=== PATIENT | male | born 1965 | race Caucasian/White ===

== ENCOUNTER 2018-02-05 09:55 | Observation (INO) | payer SELFPAY ==
[2018-02-05] MEDS ORDERED: Acetaminophen 500 MG TAB ONE (10:39)
[2018-02-05] MEDS ORDERED: Metoclopramide HCl 10 MG/2 ML VIAL ONE (10:39)
[2018-02-05 10:43] LABS: Troponin I 0.012 ng/mL (< 0.028)
[2018-02-05] MEDS ORDERED: Loratadine 10 MG TAB PO PRN (13:14)
[2018-02-05] MEDS ORDERED: Nitroglycerin 0.4 MG TAB (25 Tab Bottle) PO PRN (13:14)
[2018-02-05] MEDS ORDERED: Bisacodyl 5 MG TAB PO PRN (13:14)
[2018-02-05] MEDS ORDERED: Calcium Carbonate 500 MG ChewTAB PO PRN (13:14)
[2018-02-05] MEDS ORDERED: Cepastat Lozenges 1 LOZ PO PRN (13:14)
[2018-02-05] MEDS ORDERED: Artificial Tears 18 DROP/0.9 ML EA EYE PRN (13:14)
[2018-02-05] MEDS ORDERED: Eucerin (Mineral Oil/Petrolatum,White) 30 gm Jar TOP PRN (13:14)
[2018-02-05] MEDS ORDERED: Acetaminophen 325 MG TAB PO PRN (13:14)
[2018-02-05] MEDS ORDERED: Loperamide HCl 2 MG CAP PO PRN (13:14)
[2018-02-05] MEDS ORDERED: Zolpidem Tartrate 5 MG TAB PO PRN (13:14)
[2018-02-05] MEDS ORDERED: Ondansetron ODT 4 MG TAB PO PRN (13:14)
[2018-02-05] MEDS ORDERED: Sodium Chloride 0.65% Nasal 44 ML BOT EA NARE PRN (13:14)
[2018-02-05] MEDS ORDERED: Ondansetron PF 4 MG/2 ML Vial IVP PRN (13:14)
[2018-02-05] MEDS ORDERED: hydrALAZINE 20 MG/ML VIAL SLOW IVP PRN (13:14)
[2018-02-05] MEDS ORDERED: Nitroglycerin 0.4 MG TAB (25 Tab Bottle) SL PRN (13:14)
[2018-02-05] MEDS ORDERED: Diabetic Tussin 200 MG/10 ML UDCUP PO PRN (13:14)
[2018-02-05] MEDS ORDERED: Bisacodyl 10 MG SUPP PR PRN (13:14)
[2018-02-05 13:17] VITALS: BMI 49.3
--- NOTE | 2018-02-05 13:39 | SS ---
PRIMARY CARE PHYSICIAN: Dr. Peterson REASON FOR ADMISSION: Transferred from [facility] for chest pain. HISTORY OF PRESENT ILLNESS COURSE: A 53-year-old male who has underlying history of hypertension, dyslipidemia, morbid obesity, who initially evaluated at [facility] for chest pain. He reports that he woke up with chest pain which was substernal in location, radiated to left side of arm, associated with nausea and mild shortness of breath. He did not have any associated palpitations, dizziness, or syncope. Initially his pain was a pressure-like sensation and subsequently it changed to stabbing in nature. Initially intensity of pain was about 8/10 and subsequently reduced 4/10 by itself. The patient was given Maalox 30 mL, nitroglycerin, nitropatch and he took aspirin and ibuprofen at home. All these medications reduced his pain from 8 to 4, but the patient believes that no medication helped significantly other than time reduced his pain. He never had this type of pain in the past. He never had any cardiac workup. He denies any radiation of pain in the back. He denies any associated vomiting. He denies any UTI symptoms. He denies any constipation, diarrhea, melena or hematochezia. Patient denies any smoking. He drinks alcohol only socially. He does have a family history of coronary artery disease. Initial evaluation at [facility] with a CBC, BMP, chest x-ray, and D-dimer came back negative. His cardiac enzymes are negative x2. BNP was also normal. His chest x-ray was also normal. The patient is being admitted to our hospital for rule out acute coronary syndrome. REVIEW OF SYSTEMS: The following complete review of systems was negative, unless otherwise mentioned in the HPI or below: Constitutional: Weight loss or gain, ability to conduct usual activities. Skin: Rash, itching. Eyes: Double vision, pain. ENT/Mouth: Nose bleeding, neck stiffness, pain, tenderness. Cardiovascular: Palpitations, dyspnea on exertion, orthopnea. Respiratory: Shortness of breath, wheezing, cough, hemoptysis, fever or night sweats. Gastrointestinal: Poor appetite, abdominal pain, heartburn, nausea, vomiting, constipation, or diarrhea. Genitourinary: Urgency, frequency, dysuria, nocturia. Musculoskeletal: Pain, swelling. Neurologic/Psychiatric: Anxiety, depression. Allergy/Immunologic: Skin rash, bleeding tendency. Please see my HPI for pertinent positive and negative. All other review of systems reviewed and negative except as mentioned in the history of present illness. . ALLERGIES: LATEX. No known drug allergy. CURRENT HOME MEDICATIONS: Lisinopril with hydrochlorothiazide 20/12.5 one tablet daily, Lipitor 20 mg daily, ibuprofen 600 mg daily, aspirin 81 mg daily, multivitamin 1 tablet p.o. daily. PAST MEDICAL HISTORY: Chronic low back pain, osteoarthritis, morbid obesity, hypertension, dyslipidemia, noncompliance with medication. PAST SURGICAL HISTORY: No surgical history. The patient denies any major surgery in his life. PAST PSYCHIATRIC HISTORY: Reviewed and negative. SOCIAL HISTORY: The patient is . His is present at bedside. He drinks alcohol socially once a month. He denies any smoking. He is an ex- smoker and he quit smoking in 2009. He denies any other illicit drug abuse. FAMILY HISTORY: Positive for hypertension, heart disease among several family members. Mother had congestive heart failure and heart disease. Father had his cancer and diabetes. EMERGENCY ROOM COURSE: At [facility], the patient was given Maalox and nitropatch was applied. In our emergency room, the patient is given aspirin 164 mg, Reglan 10 mg, and Tylenol 1 gram. PHYSICAL EXAMINATION: VITAL SIGNS: Currently, blood pressure 142/81, pulse 69, respiratory rate 18, temperature 98.4, saturation 96% on room air, weight 145.2 kilograms. GENERAL: The patient is currently alert, awake, no obvious acute distress. HEAD: Normocephalic, atraumatic. EYES: Pupils round, reactive to light. Extraocular muscle intact. ENT: Oropharynx within normal limits. Moist mucous membrane. No oral lesion, no pharyngeal erythema, no exudate. NECK: Supple, no JVD, no thyromegaly, no carotid bruit. No jugular venous distention. LUNGS: Clear to auscultation without any rhonchi or rales. CARDIAC: S1, S2 regular without any murmur, no gallop, no rub. ABDOMEN: Morbid obesity present. Bowel sounds present, nontender, nondistended. No organomegaly, no mass, no suprapubic tenderness. BACK: Unremarkable. No CVA tenderness. EXTREMITIES: Upper extremities; passive movement of all joints are normal. Lower extremities; trace edema noted, but no calf tenderness. Good distal pulsation. SKIN: No skin rash. HEMATOLOGIC: No lymphadenopathy. PSYCHIATRIC: Normal affect. NEUROLOGIC: Nonfocal examination. SIGNIFICANT LABORATORY DATA: EKG showing normal sinus rhythm within normal limits. Chest x-ray based on my review, no acute cardiopulmonary process. CBC: WBC 7.1, hemoglobin 13.3, platelet 255, D-dimer less than 0.27. BMP: Sodium 143, potassium 4.1, chloride 110, carbon dioxide 24, anion gap 13, BUN 20 , creatinine 0.88, glucose 103, calcium 9.1. LFTs: AST 18, ALT 32, alkaline phosphatase 53, albumin 4.1. Cardiac enzymes negative x2. BNP 14.3. ASSESSMENT AND PLAN: 1. Chest pain. The patient's chest pain description is atypical. He has substernal pain with nausea and some shortness of breath. His pain radiates to left side. He has NSAID use and I am suspecting gastroesophageal reflux related chest discomfort, but he also has several risk factors including hypertension, dyslipidemia, and family history and his age. Based on this his probability for coronary artery disease is mild to moderate. His D-dimer is negative and probability of thromboembolic disorder is extremely unlikely and that is why we have completely excluded that possibility. This patient has arthritis and chronic low back pain and that is why he cannot do treadmill exercise stress test and that is why we have to do pharmacological stress testing. I offered him to do pharmacological stress testing to rule out acute coronary syndrome and underlying ischemia, but this patient has important things to do at home and that is why he is not sure that he will stay here in the hospital longer. If he chooses to go home, then we will consider discharging him home once we have ruled out cardiac etiology, but in that case, the patient is instructed to get outpatient stress test. That is also a reasonable option given his low risk and negative cardiac enzymes as well as a negative D-dimer. The patient is instructed to take Pepcid or Prilosec or Nexium over the counter basis for his suspected gastroesophageal reflux disease related chest pain and we advised him to avoid NSAID as well as alcohol and healthy lifestyle measures discussed with the patient and weight loss education given. 2. Hypertension, currently well controlled. The patient will continue his antihypertensive medication with Prinzide 20/12.5 one tablet daily. 3. Dyslipidemia. Continue Lipitor 20 mg p.o. at bedtime. 4. Morbid obesity. Dietary education given, weight loss education given. 5. Osteoarthritis and chronic low back pain. The patient is advised to use Tylenol product other than NSAID. 6. Deep venous thrombosis prophylaxis not needed because we are expecting discharge soon. 7. GI prophylaxis, Pepcid 20 mg p.o. b.i.d. 8. CODE STATUS: The patient is FULL CODE. The patient's is surrogate decision maker. DISPOSITION PLAN: If the patient wanted to stay until tomorrow, then we will perform pharmacological stress test. If patient decides to leave then patient will be discharged home per his request. DATE OF ADMISSION: 02/05/2018 DATE OF DISCHARGE: DISCHARGE DISPOSITION: Home. PRIMARY DISCHARGE DIAGNOSES: Chest pain, ruled out acute coronary syndrome, suspecting gastroesophageal reflux disease. . SECONDARY DISCHARGE DIAGNOSES: Hypertension, dyslipidemia, morbid obesity, chronic low back pain, osteoarthritis. PRIMARY PROCEDURES/OPERATIONS: None. RADIOLOGICAL INVESTIGATION: Chest x-ray normal. SIGNIFICANT LABORATORY DATA: Please see above. DISCHARGE MEDICATIONS: The patient will continue his home medication including Prinzide 20/12.5 one tablet daily, Lipitor 20 mg p.o. daily, aspirin 81 mg p.o. daily. The patient is instructed to take Pepcid or Prilosec or Nexium over the counter daily. CONTRAINDICATIONS: None. CODE STATUS: FULL CODE. INPATIENT CONSULTANTS: None. ALLERGIES: No known drug allergy. DISCHARGE PLAN: Post hospital, the patient will be discharged home. HOSPITAL COURSE: Please see my HPI for further detail. This patient is transferred from [facility] for chest pain. We are keeping this patient as observation to rule out acute coronary syndrome. So far, EKG is normal. Cardiac enzymes negative. This patient does not have any typical anginal pain, suspecting from GERD. He does not want to stay in hospital because he has important things to do at home. If he changes his mind and stays overnight that is fine. Otherwise, we will consider discharging him home later on today. Plan of care discussed with the patient and in the emergency room and they agreed. LIZETTE
[2018-02-05] MEDS: Nitroglycerin 2% Ointment 1 INCH/1 GM Packet TOP SCH ×2 (13:41→21:04)
[2018-02-05] MEDS: HYDROcodone/Acetaminophen 5/325 mg Tablet PO PRN ×2 (13:41→19:45)
[2018-02-05 13:56] LABS: Troponin I 0.014 ng/mL (< 0.028)
[2018-02-05 18:38] LABS: Troponin I Less than 0.010 ng/mL (< 0.028)
[2018-02-05] MEDS ORDERED: Atorvastatin Calcium 20 MG TAB PO SCH (21:00)
[2018-02-05] MEDS: Famotidine 20 MG TAB PO SCH (21:01)
[2018-02-05] MEDS: Senokot S 8.6-50 MG TAB PO SCH (21:03)
[2018-02-06] MEDS: Nitroglycerin 2% Ointment 1 INCH/1 GM Packet TOP SCH (04:39)
[2018-02-06] MEDS: HYDROcodone/Acetaminophen 5/325 mg Tablet PO PRN (08:06)
--- NOTE | 2018-02-06 08:33 | PDOC.PN ---
- Subjective Encounter Start Date: 02/06/18 Encounter Start Time: 07:00 -: old records requested/rev Patient seen and examined. No new complaints. No overnight events - Objective Resuscitation Status: Resuscitation Status FULL:Full Resuscitation MAR Reviewed: Yes Vital Signs & Weight: Vital Signs (12 hours) Temp Pulse Resp BP Pulse Ox 02/06/18 07:29 98.1 F 68 20 165/94 H 96 02/06/18 03:25 98.0 F 64 20 152/78 H 97 Weight Weight 324 lb 4 oz I&O: 02/05/18 02/06/18 02/07/18 06:59 06:59 06:59 Intake Total 1020 Balance 1020 EKG Reviewed by me: Yes Phys Exam - Physical Examination Constitutional: NAD HEENT: PERRLA, moist MMs, sclera anicteric Neck: no JVD, supple Respiratory: no wheezing, no rales, no rhonchi Cardiovascular: RRR, no significant murmur, no rub Gastrointestinal: soft, non-tender, no distention, positive bowel sounds Musculoskeletal: no edema, pulses present Neurological: non-focal, normal sensation, moves all 4 limbs Lymphatic: no nodes Psychiatric: normal affect, A&O x 3 Dx/Plan (1) Chest pain Code(s): R07.9 - CHEST PAIN, UNSPECIFIED Status: Acute (2) Hypertension Code(s): I10 - ESSENTIAL (PRIMARY) HYPERTENSION Status: Chronic (3) Morbid obesity with BMI of 45.0-49.9, adult Code(s): E66.01 - MORBID (SEVERE) OBESITY DUE TO EXCESS CALORIES; Z68.42 - BODY MASS INDEX (BMI) 45.0-49.9, ADULT Status: Chronic (4) Osteoarthritis Code(s): M19.90 - UNSPECIFIED OSTEOARTHRITIS, UNSPECIFIED SITE Status: Chronic - Plan cont current plan of care, plan discussed w/ family * medication reviewed as below * symptomatic treatment * will dc if stress test negative. Review of Systems - Review of Systems Eyes: negative: Pain, Vision Change, Conjunctivae Inflammation, Eyelid Inflammation, Redness, Other ENT: negative: Ear Pain, Ear Discharge, Nose Pain, Nose Discharge, Nose Congestion, Mouth Pain, Mouth Swelling, Throat Pain, Throat Swelling, Other Respiratory: negative: Cough, Dry, Shortness of Breath, Hemoptysis, SOB with Excertion, Pleuritic Pain, Sputum, Wheezing Cardiovascular: negative: chest pain, palpitations, orthopnea, paroxysmal nocturnal dyspnea, edema, light headedness, other Gastrointestinal: negative: Nausea, Vomiting, Abdominal Pain, Diarrhea, Constipation, Melena, Hematochezia, Other Genitourinary: negative: Dysuria, Frequency, Incontinence, Hematuria, Retention , Other Musculoskeletal: negative: Neck Pain, Shoulder Pain, Arm Pain, Back Pain, Hand Pain, Leg Pain, Foot Pain, Other Skin: negative: Rash, Lesions, Devon, Bruising, Other - Medications/Allergies Allergies/Adverse Reactions: Allergies Allergy/AdvReac Type Severity Reaction Status Date / Time No Known Allergies Allergy Verified 02/05/18 13:15 Medications: Current Medications Acetaminophen (Tylenol) 650 mg PO Q4H PRN PRN Reason: Headache/Fever/Mild Pain (1-3) Hydrocodone Bitart/Acetaminophen ([place] 5/325) 1 tab PO Q4H PRN PRN Reason: Moderate Pain (4-6) Last Admin: 02/06/18 08:06 Dose: 1 tab Artificial Tears (Tears Naturale) 2 drop EA EYE PRN PRN PRN Reason: Dry Eyes Aspirin (Aspirin) 325 mg PO DAILY [facility] Atorvastatin Calcium (Lipitor) 20 mg PO HS [facility] Last Admin: 02/05/18 21:01 Dose: 20 mg Bisacodyl (Dulcolax) 10 mg MT DAILYPRN PRN PRN Reason: Constipation Bisacodyl (Dulcolax) 10 mg PO DAILYPRN PRN PRN Reason: Constipation Calcium Carbonate (Tums) 1,000 mg PO Q4H PRN PRN Reason: Heartburn or Indigestion Famotidine (Pepcid) 20 mg PO BID [facility] Last Admin: 02/05/18 21:01 Dose: 20 mg Guaifenesin (Robitussin Sf) 200 mg PO Q4H PRN PRN Reason: Cough Lisinopril/HCTZ (Prinizide 20-12.5) 1 tab PO DAILY [facility] Hydralazine HCl (Apresoline) 10 mg SLOW IVP Q4H PRN PRN Reason: SBP > 180 and HR < 70 Loperamide HCl (Imodium) 2 mg PO PRN PRN PRN Reason: Diarrhea/Loose Stools Loratadine (Claritin) 10 mg PO DAILYPRN PRN PRN Reason: Sinus Symptoms Mineral Oil/White Petrolatum (Eucerin Cream) 0 gm TOP BIDPRN PRN PRN Reason: Dry Skin Nitroglycerin (Nitrostat) 0.4 mg PO Q5MIN PRN PRN Reason: Chest Pain Nitroglycerin (Nitro-Bid 2% Ointment) 0.5 inch TOP Q8HR [facility] Last Admin: 02/06/18 04:39 Dose: Not Given Ondansetron HCl (Zofran Odt) 4 mg PO Q6H PRN PRN Reason: Nausea/Vomiting Ondansetron HCl (Zofran) 4 mg IVP Q6H PRN PRN Reason: Nausea/Vomiting Senna/Docusate Sodium (Senokot S) 2 tab PO BID [facility] Last Admin: 02/05/18 21:03 Dose: Not Given Sodium Chloride ([place] Nasal [place] 0.65%) 0 ml EA NARE QIDPRN PRN PRN Reason: Nasal Congestion Throat Lozenges (Cepastat Lozenges) 1 belinda PO Q2H PRN PRN Reason: Sore Throat Zolpidem Tartrate (Ambien) 5 mg PO HSPRN PRN PRN Reason: Insomnia
[2018-02-06] MEDS ORDERED: Lisinopril/Hydrochlorothiazide 20 mg/12.5 mg Tablet PO SCH (09:00)
[2018-02-06] MEDS ORDERED: Aspirin 325 MG TAB PO SCH (09:00)
[2018-02-06] MEDS: Famotidine 20 MG TAB PO SCH (10:03)
[2018-02-06] MEDS: Senokot S 8.6-50 MG TAB PO SCH (10:04)
[2018-02-06] MEDS ORDERED: Regadenoson 0.4 MG/5 ML SYRINGE ONE (10:24)
--- NOTE | 2018-02-06 10:40 | DIS ---
DATE OF ADMISSION: 02/05/2018 DATE OF DISCHARGE 02/06/2018 DISCHARGE DISPOSITION: Home. PRIMARY DISCHARGE DIAGNOSIS: Chest pain, ruled out acute coronary syndrome, suspecting gastroesophageal reflux disease. SECONDARY DISCHARGE DIAGNOSES: Chronic low back pain, hypertension, morbid obesity with BMI 49, osteoarthritis. PRIMARY PROCEDURE/OPERATION: None. RADIOLOGICAL INVESTIGATION: Chest x-ray was normal. Stress test result is pending. SIGNIFICANT LABORATORY: Cardiac enzymes negative. LDL 68. CBC, BMP done at other emergency room which was normal. DISCHARGE MEDICATIONS: The patient will take Protonix 40 mg p.o. daily along with his home medications. We advised him to avoid NSAIDs. He will continue aspirin 81 mg daily, Prinzide 20/12.5 one tablet daily, multivitamin 1 capsule daily. CONTRAINDICATIONS: None. CODE STATUS: FULL CODE. INPATIENT CONSULTANTS: None. ALLERGIES: No known drug allergy. DISCHARGE PLAN: Post hospital, the patient will follow up with primary care physician. HOSPITAL COURSE: Please see my HPI dictated yesterday. The patient was admitted for chest pain. He was evaluated initially at [facility]. His routine testing including EKG was normal. The patient stayed overnight and we did serial cardiac enzymes that were negative. Telemetry remained unremarkable. He underwent stress test which result is pending. If stress test is negative, then this patient will be discharged home today. STRESS TEST IS NEGATIVE AND DISCUSSED WITH PT LIZETTE
[2018-02-06 11:43] VITALS: BP 165/75; TEMP 98.2
--- NOTE | 2018-02-06 11:57 | NM ---
CARDIAC SPECT: CLINICAL HISTORY: 53-year-old male with chest pain, hypertension, and dyslipidemia. TECHNIQUE: A myocardial perfusion scan was performed using the single isotope two day protocol with 33 mCi techn etium-99m sestamibi injected intravenously for both stress and rest images. Pharmacologic stress with Lexiscan was monitored and interpreted by Dr. Lindo. FINDINGS: Homogeneous tracer distribution is noted in the myocardial segments on stress and rest images without fixed or reversible defects. GATED SPECT LVEF: 56%. WALL MOTION EXAM: Normal. IMPRESSION: Normal myocardial perfusion scan. POS: C
--- NOTE | 2018-02-10 12:22 | STRESS ---
Acquisition Time: 2018-02-06 08:21:33 Total Exercise Time: 00:01:00 Test Indications: CHEST PAIN Medications: Protocol: LEXISCAN Max HR: 092 BPM 55% of Pred: 167 BPM Max BP: 150/090 mmHG Max Work Load: 1.0 METS THE PATIENT WAS INJECTED WITH LEXISCAN. HE DID NOT DEVELOP CHEST PAIN. THERE WAS NO SIGNIFICANT ST DEPRESSION. AWAIT NUCLEAR IMAGES FOR DEFINITIVE DIAGNOSIS. Confirmed by BK SHORE ([id number]), news video editor DAVID BARAHONA ([id number]) on 02/10/2018 12:22:34 PM Referred By: MD Robin FRIEND Confirmed By:BK SHORE
== END 2018-02-06 13:02 | disposition home or self-care (01) ==
LOC: ERS 09:55 → 2SW 12:02
PROVIDERS: ADMIT Internal Medicine; ATTEND Internal Medicine
DX: R07.89 Other chest pain (principal); G89.29 Other chronic pain; M54.9 Dorsalgia, unspecified; M19.90 Unspecified osteoarthritis, unspecified site; I10 Essential (primary) hypertension; E78.5 Hyperlipidemia, unspecified; E66.01 Morbid (severe) obesity due to excess calories; Z68.42 Body mass index [BMI] 45.0-49.9, adult; Z79.1 Long term (current) use of non-steroidal anti-inflammatories (NSAID); Z79.82 Long term (current) use of aspirin; Z79.899 Other long term (current) drug therapy; Z91.040 Latex allergy status; Z91.14 Patient's other noncompliance with medication regimen
CPT/HCPCS: 36415; 78452; 80061; 93017; 94760; 96374; A9500; G0378; J2765; J2785